=== PATIENT | male | born 1955 | race African-American/Black ===

== ENCOUNTER → 2020-03-08 | Outpatient (CLI) | payer OTHER ==
[2015-03-19 09:42] VITALS: BP 154/95
[~2020-03-08] MED LIST: IOHEXOL 240 MG/ML 50ML VIAL. PO ONE; IOHEXOL 300 MG/ML 100ML VIAL. IV ONE
[2020-03-08 10:05] LABS: CREATININE 1.1 mg/dL (0.7-1.3); GFR 81.8
--- NOTE | 2020-03-08 15:28 | RAD ---
EXAM: CT Abdomen and Pelvis with IV contrast INDICATION: Reason: MALIGNANT NEOPLASM OF PROSTATE / Spl. Instructions: IV OMNI 300 75 MLS AND PO OMN I 240 50 MLS TECHNIQUE: Multi-detector row CT images were acquired from the lung bases through the abdomen and pel vis with the use of IV contrast. Sagittal and coronal images were acquired from the transaxial data. All CT scans performed at this facility utilize dose optimization techniques as appropriate to the ex am, including the following: Automated exposure control and adjustment of the mA and/or KV according to patient size (this includes techniques or standardized protocols for targeted exams where dose is indication/reason for exam). IV CONTRAST: Administered ORAL CONTRAST: Not administered COMPARISON: None FINDINGS: LOWER CHEST: Multiple punctate calcifications at the lung bases and calcified bilateral hilar lymph n odes are compatible with previous granulomatous disease. LIVER: Unremarkable BILIARY SYSTEM: Gallbladder is unremarkable. Bile ducts are not dilated. PANCREAS: Unremarkable SPLEEN: Unremarkable ADRENALS: Unremarkable KIDNEYS & URETERS: 2 densities at the inferior pole right kidney are equivocal for early contrast ex cretion versus tiny 1 to 2 mm punctate kidney stones. No hydronephrosis or hydroureter. No abnormal e nhancements the kidneys otherwise noted. BLADDER: Small urachal diverticulum of the bladder dome. Normal bladder wall thickness. REPRODUCTIVE ORGANS: Unremarkable GASTROINTESTINAL: No bowel obstruction, perforation or acute inflammation. Scattered colonic divertic kim are present. The appendix is normal. MESENTERY/PERITONEUM/RETROPERITONEUM: Unremarkable VASCULAR: Unremarkable LYMPH NODES: No adenopathy OSSEOUS & SOFT TISSUES: Facet hypertrophy medially lower lumbar spine, notably at L3-L4 through L5-S 1. IMPRESSION: No CT evidence of visceral or osseous prostate cancer metastatic disease in the abdomen or pelvis. Electronically signed by: Ethan Manuel MD (03/08/2020 3:25 PM) [id number]
--- NOTE | 2020-03-09 09:27 | RAD ---
History: 64-year-old man with prostate cancer. Comparison: CT abdomen and pelvis with IV contrast of earlier the same day. Procedure: 25 mCI of Tc 99m MDP was injected intravenously and delayed scintigraphic images were obta ined of the skeletal system. Findings: There is asymmetric uptake in the right iliac wing anteriorly that correlates with an area of dense s clerosis and osseous deformity that sinuses suggestive of sequelae of old trauma. There is also subtle increase in L3 along the endplates that is not associated with osseous deformity in the mid lumbar spine. Impression: 1. No convincing evidence of osseous metastatic disease on bone scan. 2. Uptake in the right iliac wing is suggestive of old posttraumatic change, and in the lumbar spine at L3, favored to represent adjacent degenerative changes at L2-L3 and at L3-L4. Electronically signed by: Ethan Manuel MD (03/09/2020 9:25 AM) [id number]
== END ==
LOC: NM 10:38
PROVIDERS: ATTEND Urology
DX: C61 Malignant neoplasm of prostate (principal); R91.1 Solitary pulmonary nodule; K57.30 Diverticulosis of large intestine without perforation or abscess without bleeding; N32.3 Diverticulum of bladder; M47.817 Spondylosis without myelopathy or radiculopathy, lumbosacral region
CPT/HCPCS: 36415; 74177; 78306; 82565; A9503; Q9966; Q9967

== ENCOUNTER → 2020-12-16 | Outpatient (CLI) | payer OTHER ==
[2015-03-19 09:42] VITALS: BP 154/95
[~2020-12-16] MED LIST changes: +GADOTERATE 5 MMOL/10ML VIAL. IVP ONE; -IOHEXOL 240 MG/ML 50ML VIAL. PO ONE; -IOHEXOL 300 MG/ML 100ML VIAL. IV ONE; +METF500T16 PO
--- NOTE | 2020-12-16 15:45 | KCIC ---
MRI of the Brain/Pituitary Gland without and with Contrast 12/16/2020 Clinical History: History of pituitary adenoma. Technique: Unenhanced T1-weighted, FLAIR, T2-weighted, gradient echo and diffusion-weighted axial isis ges of the brain were obtained. Thin section T1-weighted sagittal and coronal and T2 weighted coronal images through the pituitary gland were obtained. After the intravenous administration of 30cc of Cl ariscan, enhanced T1-weighted axial images of the brain were obtained. Additionally thin section T1-w eighted sagittal and coronal and dynamic enhanced T1-weighted coronal images through the pituitary gl and were obtained. Findings: Comparison study is dated 12/19/2018. This was performed at [facility] in [facility]. The ventricles and sulci are within normal limits in size and configuration. Patchy and several small scattered areas of increased signal intensity are seen within the periventricular and subcortical wh ite matter of both cerebral hemispheres on the FLAIR and T2-weighted images consistent with areas of minimal small vessel ischemic disease. No acute parenchymal abnormality is seen. No abnormal area of contrast enhancement is seen. No extra- axial fluid collection is noted. There is no MRI evidence of acute ischemia/infarction. Images through the pituitary gland demonstrate a somewhat oval-shaped area of diminished contrast enh ancement within the sellar region which extends to involve the right cavernous sinus. The infundibulu m is displaced to the left. This mass measures 1.4 x 1.0 x 0.9 cm in transverse, craniocaudal and AP dimensions. This is consistent with the patient's history of a macroadenoma. No significant extension into the suprasellar cistern is seen. This mass has not significantly changed when compared to the p revious examination. Mild mucosal thickening is seen scattered throughout the paranasal sinuses. There is a small right ma stoid effusion. Normal flow voids are seen within the major vascular structures surrounding the brain parenchyma. There is a small right mastoid effusion. 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 This has not significantly changed since the previous examination. No acute parenchyma l abnormality is seen. Electronically signed by: Ravin Santiago MD (12/16/2020 3:43 PM) [id number]
== END ==
LOC: KCIC MRI 13:03
PROVIDERS: ATTEND Family Medicine
DX: D35.2 Benign neoplasm of pituitary gland (principal); J34.89 Other specified disorders of nose and nasal sinuses; G93.6 Cerebral edema
CPT/HCPCS: 70553; 82565; A9575